=== PATIENT | male | born 1970 | race Caucasian/White ===

== ENCOUNTER 2017-05-31 20:08 | Emergency (ER) | payer MEDICAID ==
[~2017-05-31] VITALS: Ht 160 cm; Wt 83.9 kg
[~2017-05-31 20:08] MED LIST: GEMF600T5 PO; GLYB5TAB9 PO; LISI5TAB18 PO; METF500T PO
[2017-05-31 20:34] VITALS: BP 142/76
--- NOTE | 2017-05-31 22:06 | NUR ---
Pt placed in bed 4.
--- NOTE | 2017-05-31 22:12 | NUR ---
46/M c/o left thumb laceration while working with tools at home. Per family member, pt somehow turned on the tool and cut his left thumb around [id number]. She states the patient did not want to come to the ED. No active bleeding noted at this time. Laceration/avulsion to left thumb. CMS intact. PT is AOX4, non verbal, deaf, speaks sign language. Family member at bedside translating sign language for patient. VSS. Hx DM, HTN, high cholesterol
--- NOTE | 2017-05-31 22:30 | NUR ---
Patient being evaluated by Dr. Grey at bedside.
[2017-05-31] MEDS ORDERED: LIDOCAINE 1% 500 MG/50 ML VIAL INJ ONE (22:50)
--- NOTE | 2017-05-31 22:52 | NUR ---
Dr. Grey at bedside for laceration repair.
[2017-05-31] MEDS ORDERED: NEOMYCIN/POLYMYXIN/BACITRACIN 0.9 GM/1 PKT TP ONE (23:05)
[2017-05-31 23:16] VITALS: BP 155/96
--- NOTE | 2017-05-31 23:16 | NUR ---
Patient discharged with v/s stable. Written and verbal after care instructions given and explained. Patient alert, oriented and verbalized understanding of instructions. Ambulatory with steady gait. All questions addressed prior to discharge. ID band removed. Patient advised to follow up with PMD. Rx of Motrin 800mg, Augmentin 875mg, [place] 5mg-325mg given. Patient educated on indication of medication including possible reaction and side effects. Opportunity to ask questions provided and answered.
== END 2017-05-31 23:16 | disposition home or self-care (01) ==
LOC: MED 20:08
DX: S61.112A Laceration without foreign body of left thumb with damage to nail, initial encounter (principal); E11.9 Type 2 diabetes mellitus without complications; I10 Essential (primary) hypertension; E78.00 Pure hypercholesterolemia, unspecified; W45.8XXA Other foreign body or object entering through skin, initial encounter; Y93.89 Activity, other specified; Y92.89 Other specified places as the place of occurrence of the external cause; Y99.8 Other external cause status
CPT/HCPCS: 29130; 73140; 90715; 96372; 99284; J2001